=== PATIENT | male | born 1945 | race Caucasian/White ===

== ENCOUNTER 2019-06-03 14:31 | Emergency (ER) | payer MEDICARE, OTHER ==
[2019-06-03] MEDS ORDERED: Diph,Pert(Acell),Tet Vac 0.5 ML SYR IM ONE (14:51)
[2019-06-03] MEDS ORDERED: CEFAZOLIN 2 Gram 2 GM/50 ML BAG IVPB ONE (14:52)
--- NOTE | 2019-06-03 14:57 | Emergency Department Record ---
History of Present Illness - General Chief complaint: Extremity Problem Stated complaint: RT HAND PINKIE/ROTOR ACCIDENT Time Seen by Provider: 06/03/19 14:48 Source: Patient Mode of Arrival: Ambulatory Limitations: No limitations - History of Present Illness Initial comments: The patient is here due to cutting his R 5th finger 30 minutes ago in a router. He has numbness to the finger and is unable to move it. His Td is not UTD and he has no allergies. MD Complaint: Extremity pain Onset/Timin -: Minutes(s) Location: Right, Hand Consistency: Constant Improves with: Nothing Worsens with: Nothing - Related Data Home Medications Medication Instructions Recorded Confirmed Last Taken No Home Med [NO HOME MEDS] 06/03/19 06/03/19 Unknown Allergies Allergy/AdvReac Type Severity Reaction Status Date / Time No Known Drug Allergies Allergy Verified 06/03/19 14:39 Travel/Exposure Screening - Travel/Exposure Within Last 30 Days Have you traveled within the last 30 days?: No - Additonal Travel/Exposure Details Have you been exposed to anyone with a communicable illness?: No Review of Systems Constitutional: Denies: Chills, Fever Past Medical History - SOCIAL HISTORY Smoking Status: Never smoker Alcohol Use: None Drug Use: None - RESPIRATORY Hx Respiratory Disorders: No - CARDIOVASCULAR Hx Cardio Disorders: No - NEURO Hx Neuro Disorders: No - GI Hx GI Disorders: No - Hx Genitourinary Disorders: No - ENDOCRINE Hx Endocrine Disorders: No - MUSCULOSKELETAL Hx Musculoskeletal Disorders: No - PSYCH Hx Psych Problems: No - HEMATOLOGY/ONCOLOGY Hx Hematology/Oncology Disorders: No Family Medical History Any Significant Family History?: No Physical Exam - General General Appearance: Alert, Cooperative, No acute distress - Head Head exam: Atraumatic - Eye Eye exam: Normal appearance - Extremities Extremities exam: negative: Normal inspection (The R 5th finger has extensive damage from the router. There is a large laceration to the middle portion of the finger with the inability to flex and extend. ), Full ROM Image of Hand: 1 - Extensive laceration with bone loss. Course Vital Signs 06/03/19 14:39 Temperature 98.2 F Pulse Rate 110 H Respiratory 20 Rate Blood Pressure 149/107 Pulse Ox 97 - Reevaluation(s) Reevaluation #1: The xray does demonstrate destruction of the R 5th finger middle phalynx. The pa zandra clearly needs to see a hand surgeon to have the finger amputated. I did discuss the case with Dr. Rausch and he would like to have the patient sent to the [facility] ER and he will take him to surgery. I did also talk with Dr. Warren in the ER at [facility] and he does accept the patient in an ER to ER transfer. 06/03/19 15:50 Medical Decision Making - Data Complexity MDM Data: X-Ray Ordered and/or Reviewed - Radiology Data Radiology results: Report reviewed (R hand: R 5th finger middly phalynx is in multiple pieces.) Disposition Disposition: Transfer Clinical Impression: Open finger fracture Qualifiers: Encounter type: initial encounter Finger: unspecified finger Phalanx: unspecified phalanx Fracture alignment: displaced Qualified Code(s): S62.609B - Fracture of unspecified phalanx of unspecified finger, initial encounter for open fracture Disposition: Acute Care Hospital Transfer Transfer To: [facility] Reason For Transfer: Hand Surgery Accepting Physician: Kelvin Time Discussed w/Accepting Physician: 15:53 Condition: (2) Stable Forms: Patient Portal Access Time of Disposition: 15:53 Quality - Quality Measures Quality Measures: N/A - Blood Pressure Screening View Details: Yes Does Patient Have Any of the Following: Active Dx of HTN Blood Pressure Classification: Hypertensive Reading Systolic Measurement: 149 Diastolic Measurement: 107 Screening for High Blood Pressure: Patient Exclusion, Hx of HTN [[id number]]
--- NOTE | 2019-06-03 15:21 | RADIOLOGY REPORT ---
EXAMINATION: Right Hand, Minimum Three Views EXAM DATE: 06/03/2019 3:10 PM TECHNIQUE: PA, lateral, and oblique INDICATION: trauma to 5th finger. The technologist elicited the history: Router versus fifth finger. Laceration. COMPARISON: None ENCOUNTER: Initial FINDINGS: The middle phalanx of the right little finger has been fractured into multiple, displaced small piece s. No normal appearing anatomy of the middle phalanx is identified. There is soft tissue swelling. Th ere is no other acute bone or joint abnormality. Diffuse narrowing of the interphalangeal and metacar pal phalangeal joints as well as the first carpal metacarpal joint space. IMPRESSION: Multiple fracture dislocations middle phalanx, right little finger. See above. Diffuse degenerative joint changes. Dictated by: Monica Augustine MD on 06/03/2019 3:17 PM. .
== END 2019-06-03 16:05 | disposition short-term general hospital (02) ==
LOC: ER 14:31
DX: S62.626B Displaced fracture of middle phalanx of right little finger, initial encounter for open fracture (principal); W31.2XXA Contact with powered woodworking and forming machines, initial encounter; I10 Essential (primary) hypertension
CPT/HCPCS: 99285; 96372; 96365; 99284; 73130; J0690; 90715